=== PATIENT | female | born 1955 | race Caucasian/White ===

== ENCOUNTER → 2023-05-24 10:51 | Outpatient (BNVA) | payer MEDICAID, SELFPAY | PROVIDERS: Visit Provider Physician Assistant Surgical ==

== ENCOUNTER 2023-07-19 10:56 | Outpatient (AMB) | payer MEDICARE, SELFPAY ==
--- NOTE | 2023-07-19 10:58 | MHC.OFFVISWM ---
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 Allergies zolpidem [From Ambien] Allergy (Severe, Verified 07/19/23 11:01) Agitated amoxicillin [From Augmentin] Adverse Reaction (Mild, Verified 07/19/23 11:01) Rash cephalexin Adverse Reaction (Mild, Verified 07/19/23 11:01) Rash clavulanic acid [From Augmentin] Adverse Reaction (Mild, Verified 07/19/23 11:01) Rash clotrimazole Adverse Reaction (Mild, Verified 07/19/23 11:01) Rash Penicillins Adverse Reaction (Mild, Verified 07/19/23 11:01) Rash Sulfa (Sulfonamide Antibiotics) Adverse Reaction (Mild, Verified 07/19/23 11:01) Rash Medication List - Last Reconciled 07/19/23 by Tamiko Leiva PA-C albuterol sulfate 90 mcg/actuation (Ventolin HFA) inhalation bupropion HCl ea PO bupropion HCl ea PO cholecalciferol (vitamin D3) 25 mcg PO DAILY dulaglutide (Trulicity) mg subcut duloxetine ea PO ferrous sulfate (FeroSul) 325 mg PO DAILY folic acid 1 mg PO DAILY lamotrigine 25 mg PO DAILY latanoprost 0.005% 1 drp ophthalmic (eye) DAILY lisinopril 5 mg PO DAILY metformin 1,000 mg PO DAILY nystatin (Nystop) topical omeprazole 40 mg PO DAILY rosuvastatin 5 mg PO DAILY thiamine HCl (vitamin B1) 100 mg PO DAILY HPI HPI Comments History of Present Illness Details This is a 67 year old woman who is here to start SWL program with SWL classes. Pt is not sure whether she wants bariatric surgery. She has lost about 80 lbs over the last year by changing her food habits. Her goal is loose weight. She reports first being concerned about her weight when she went for an MRI recently. She has tried multiple methods of weight loss including dietary changes without permanent results. She lives alone. She is unemployed. [employer] 6 d/week from 8am - 11 am She wakes at: 9:30 am, bed at gets in bed at 6:30 pm and watches TV and falls asleep at 9 pm - urinates 5 x per night and watches TV through the night - last night pudding, or cheese. Breakfast: tea - sugar and whole milk. 9am - Premier shake OR 3 eggs boiled or fried with cheese. Lunch: 3pm - 4pm - when hungry - tuna with berman and canned chicken noodle soup. water Dinner: skip dinner daily After dinner: 11:30 pm - after waking will eat Other snacks: none Liquids: No soda, fruit juice -3-4 d/ week. 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 Last mammogram: 2022 Last pap smear:s/p hyst control method: post menopausal BIB: 3 ESS: 11 GERD:6 QOL:121 PFSH Surgical History History of lithotripsy Hx of tonsillectomy Hx of dilation and curettage H/O: hysterectomy Family History Father Liver cancer Intestinal cancer Paternal Aunt Heart disease Maternal Grandmother Cancer of tongue Social History Alcohol intake: current Alcohol intake frequency: holidays/special occasions only Alcohol type: wine Patient Tobacco Use Status: Former Tobacco user Physical Exam Const General: cooperative, no acute distress and well developed Nutritional Appearance: obese Orientation/consciousness: patient oriented x3 HEENT Head: Yes normal to inspection Neck Neck: Yes normal visual inspection Thyroid: Thyroid normal Resp Effort & Inspection: normal respiratory effort Auscultation: clear to auscultation bilaterally Cardio Rate: regular rate Rhythm: regular rhythm Heart sounds: S1 normal heart sound present, S2 normal heart sound present and no murmurs GI Inspection: No distended, Yes incision (robotic linciisons well healed), Yes Abdominal panniculus present, Yes obesity and Yes striae Palpation (GI): Soft to palpation, nontender and no guarding Skin General skin exam: no rashes or lesions noted and other (warm and dry) Wounds: no wounds Hair: normal Neuro General: patient oriented x3 Extrem Other: edema of both lower extremities to below knee. L.R, both legs with chronic venous stasis changes, L>R left leg warm to touch. General: Yes no calf tenderness, Yes calf tenderness and Yes other (No Homans sign) Psych Attitude: cooperative Thought process: Normal thought process present Thought content: Normal thought content present Insight: Good insight present (Psych) Judgement: Good judgement present (Psych) Assessment & Plan Assessment & Plan (1) Morbid obesity due to excess calories: Code(s): E66.01 - Morbid (severe) obesity due to excess calories Plan: This is a 67 yo woman with morbid obesity, DM, and multiple other medical co- morbidities of morbid obesity. Pt is unsure whether she wants to start with SWL program. Due to her complicated medical condition swe did not have time to review any plan for treatment. She was givne my card and will call if she chooses to continue. Patient was encouraged to call her PCP and premium representative now about her left lower leg edema and chronic stasis. Patient is morbidly obese and is not considered stable at this time.?I spent a total of 60 minutes reviewing/updating records, examining the patient and counseling the patient on weight management as detailed above. (2) Diabetes mellitus: Code(s): E11.9 - Type 2 diabetes mellitus without complications Plan: Will discuss restart of Farixga with premium representative- helped her edema (3) PTSD (post-traumatic stress disorder): Code(s): F43.10 - Post-traumatic stress disorder, unspecified (4) Anxiety and depression: Code(s): F41.9 - Anxiety disorder, unspecified; F32.A - Depression, unspecified (5) Bipolar disorder: Code(s): F31.9 - Bipolar disorder, unspecified (6) Hyperlipidemia: Code(s): E78.5 - Hyperlipidemia, unspecified (7) GERD (gastroesophageal reflux disease): Code(s): K21.9 - Gastro-esophageal reflux disease without esophagitis (8) Sleep apnea: Comment: NOT using CPAP Code(s): G47.30 - Sleep apnea, unspecified Plan: Discussed that she must use her CPAP machine at least 6 hours per night. (9) Chronic venous stasis: Code(s): I87.8 - Other specified disorders of veins Plan: MUST contact her PCP this week for treatment and care. Coding Level of Care Code New Pt Level 5 (02962) Diagnoses Morbid obesity due to excess calories E66.01 Diabetes mellitus E11.9 PTSD (post-traumatic stress disorder) F43.10 Anxiety and depression F41.9; F32.A Bipolar disorder F31.9 Hyperlipidemia E78.5 GERD (gastroesophageal reflux disease) K21.9 Sleep apnea G47.30 Chronic venous stasis I87.8
[2023-07-19 11:09] VITALS: BP 117/63; PULSE 111; RESP 16; TEMP 36.1; O2SAT 94; BMI 62.7
== END 2023-07-19 12:18 | disposition home or self-care (01) ==
PROVIDERS: Visit Provider Physician Assistant
DX: E66.01 Morbid (severe) obesity due to excess calories (principal); Z68.44 Body mass index [BMI] 60.0-69.9, adult; E11.9 Type 2 diabetes mellitus without complications; K21.9 Gastro-esophageal reflux disease without esophagitis
CPT/HCPCS: 99205

== ENCOUNTER → 2023-07-19 10:56 | Outpatient (BNVA) | payer MEDICARE, SELFPAY | PROVIDERS: Visit Provider Physician Assistant ==